=== PATIENT | female | born 1995 | race Caucasian/White ===

== ENCOUNTER 2019-11-21 19:45 | Emergency (ER) | payer BC ==
--- NOTE | 2019-11-21 21:20 | EDM.PDOC ---
ED HPI GENERAL MEDICAL PROBLEM - General Chief Complaint: Lower Extremity Injury/Pain Stated Complaint: LEFT FOOT HURTS Time Seen by Provider: 11/21/19 21:20 - History of Present Illness INITIAL COMMENTS - FREE TEXT/NARRATIVE: 24-year-old female presents the emergency room with left foot pain. This pain is been getting worse over the last several days it does not seem to bother her until she steps down on it and it seems to involve her heel. Sometimes it gets better sometimes it does not get better with ambulation. Patient denies any recent trauma. Patient has not had this problem in the past. Left Feet Pain Score (Numeric/FACES): 5 - Related Data Allergies Allergy/AdvReac Type Severity Reaction Status Date / Time No Known Allergies Allergy Verified 11/21/19 19:51 Home Meds: Home Meds . [No Known Home Meds] 11/21/19 [History] Past Medical History - Past Health History Medical/Surgical History: Denies Medical/Surgical History Social & Family History - Tobacco Use Smoking Status *Q: Never Smoker - Recreational Drug Use Recreational Drug Use: No Review of Systems - Review of Systems Review Of Systems: See Below Constitutional: Reports: No Symptoms Respiratory: Reports: No Symptoms Cardiovascular: Reports: No Symptoms GI/Abdominal: Reports: No Symptoms ED EXAM, GENERAL - Physical Exam Exam: See Below Exam Limited By: No Limitations General Appearance: Alert, No Apparent Distress Respiratory/Chest: No Respiratory Distress, Lungs Clear, Normal Breath Sounds Cardiovascular: Regular Rate, Rhythm, No Edema, No Murmur Extremities: Other (Of her left foot shows no obvious deformity neurovascular status is intact. She has palpation induced tenderness over the plantar fascia insertion on the calcaneus and this goes up the medial side and up the lateral side. No other abnormality noted on foot exam) Course - Vital Signs Last Recorded V/S: Last Vital Signs Temp 36.6 C 11/21/19 19:51 Pulse 70 11/21/19 19:51 Resp 15 11/21/19 19:51 BP 118/59 L 11/21/19 19:51 Pulse Ox 98 11/21/19 19:51 - Orders/Labs/Meds Orders: Active Orders 24 hr Category Date Time Status Foot Comp Min 3V Lt [CR] Stat Exams 11/21/19 21:26 Taken - Re-Assessments/Exams Free Text/Narrative Re-Assessment/Exam: 11/21/19 22:15 Examination of the foot is entirely unremarkable she does not even have bone spurs on her calcaneus however this does not exclude plantar fasciitis. I had a long discussion with the patient she will use Naprosyn or ibuprofen and she will try and get a [id number] arch support and see if this helps if she is not making improvement in a couple of weeks she should follow-up with a management aide. Departure - Departure Time of Disposition: 22:16 Disposition: Home, Self-Care Clinical Impression: Pain of left heel, Plantar fasciitis of left foot - Discharge Information Referrals: PCP,None [Primary Care Provider] - Forms: ED Department Discharge Additional Instructions: Return to the emergency room with any questions problems or worsening symptoms. supervisor hot dip tinning an [id number] comfortable foot bed insert. Take Naprosyn twice daily or ibuprofen 3 or 4 times daily. If this does not improve in a couple weeks follow-up with podiatry Sepsis Event Note - Evaluation Sepsis Screening Result: No Definite Risk - Focused Exam Vital Signs: Vital Signs Temp Pulse Resp BP Pulse Ox 11/21/19 19:51 36.6 C 70 15 118/59 L 98 Date Exam was Performed: 11/21/19 Time Exam was Performed: 22:15 - My Orders Last 24 Hours: My Active Orders 11/21/19 21:26 Foot Comp Min 3V Lt [CR] Stat - Assessment/Plan Last 24 Hours: My Active Orders 11/21/19 21:26 Foot Comp Min 3V Lt [CR] Stat
--- NOTE | 2019-11-22 07:25 | CR ---
Left foot: Four views of the left foot were obtained. Comparison: No prior foot imaging is available. Findings: Joint spaces are preserved. No fracture, dislocation or other bony abnormality is seen. Impression: 1. No abnormality is appreciated on left foot exam. Diagnostic code #1 This report was dictated in [place] Standard Time
== END 2019-11-21 22:22 | disposition home or self-care (01) ==
LOC: JD.ED 19:45
DX: M72.2 Plantar fascial fibromatosis (principal)
CPT/HCPCS: 73630-26-LT; 73630-LT; 99283-25

== ENCOUNTER 2020-01-30 22:54 | Emergency (ER) | payer BC, OTHER ==
[2020-01-30] MEDS ORDERED: Sodium Chloride 0.9% 10 ML Syringe FLUSH PRN (23:22)
[2020-01-30] MEDS ORDERED: Ondansetron 4 MG/2 ML SDV IVPUSH ONE (23:22)
[2020-01-30] MEDS ORDERED: Sodium Chloride 0.9% 1,000 ML IV STA (23:22)
[2020-01-30] MEDS: HYDROmorphone 1 MG/ML Syringe IVPUSH ONE (23:40)
[2020-01-31] MEDS: HYDROmorphone 1 MG/ML Syringe IVPUSH ONE (00:10)
[2020-01-31] MEDS ORDERED: Famotidine 20 MG/2 ML SDV IVPUSH ONE (00:29)
--- NOTE | 2020-01-31 00:35 | EDM.PDOC ---
ED HPI GENERAL MEDICAL PROBLEM - General Chief Complaint: Abdominal Pain Stated Complaint: abdominal and back pain Time Seen by Provider: 01/30/20 23:13 Source of Information: Reports: Patient History Limitations: Reports: No Limitations - History of Present Illness INITIAL COMMENTS - FREE TEXT/NARRATIVE: The patient presents with upper abdominal pain, nausea and vomiting This all started yesterday. She says the pain wraps around to her back. She has no diarrhea or dysuria. She still has her appendix and gallbladder. She has no chest pain, shortness of breath, fever or chills. Onset: Gradual Duration: Day(s): Location: Reports: Abdomen Quality: Reports: Sharp Severity: Moderate Improves with: Reports: None Worsens with: Reports: None Associated Symptoms: Reports: Nausea/Vomiting. Denies: Chest Pain, Cough, Fever /Chills, Headaches, Shortness of Breath Right Upper Abdominal Pain Score (Numeric/FACES): 5 - Related Data Allergies Allergy/AdvReac Type Severity Reaction Status Date / Time No Known Allergies Allergy Verified 01/30/20 23:06 Home Meds: Home Meds Ondansetron [Zofran ODT] 4 mg PO Q6H PRN #20 tab.dis 01/31/20 [Rx] Past Medical History - Past Health History Medical/Surgical History: Denies Medical/Surgical History - Past Surgical History Female Surgical History: Reports: Section Musculoskeletal Surgical History: Reports: Other (See Below) Other Musculoskeletal Surgeries/Procedures:: left arm fx with pins Social & Family History - Tobacco Use Smoking Status *Q: Never Smoker - Caffeine Use Caffeine Use: Reports: Soda - Recreational Drug Use Recreational Drug Use: No ED ROS GENERAL - Review of Systems Review Of Systems: See Below Constitutional: Reports: No Symptoms HEENT: Reports: No Symptoms Respiratory: Reports: No Symptoms Cardiovascular: Reports: No Symptoms Endocrine: Reports: No Symptoms GI/Abdominal: Reports: Abdominal Pain, Nausea, Vomiting. Denies: Diarrhea : Reports: No Symptoms Musculoskeletal: Reports: No Symptoms ED EXAM, GI/ABD - Physical Exam Exam: See Below Exam Limited By: No Limitations General Appearance: Alert, No Apparent Distress Ears: Normal External Exam Nose: Normal Inspection Head: Atraumatic, Normocephalic Neck: Normal Inspection Respiratory/Chest: No Respiratory Distress, Lungs Clear, Normal Breath Sounds Cardiovascular: Regular Rate, Rhythm, No Edema, No Murmur GI/Abdominal Exam: Soft, No Organomegaly, No Mass, Tender (Moderate tenderness to the upper abdomen) Back Exam: Normal Inspection Extremities: Normal Inspection Course - Vital Signs Last Recorded V/S: Last Vital Signs Temp 96.9 F 01/30/20 23:03 Pulse 96 01/30/20 23:03 Resp 16 01/30/20 23:03 BP 124/95 H 01/30/20 23:03 Pulse Ox 96 01/30/20 23:03 - Orders/Labs/Meds Orders: Active Orders 24 hr Category Date Time Status Peripheral IV Care [RC] . DIRECTED Care 01/30/20 23:22 Active Abdomen Pelvis w Cont [CT] Stat Exams 01/31/20 00:07 Taken Sodium Chloride 0.9% [Saline Flush] Med 01/30/20 23:22 Active 10 ml FLUSH ASDIRECTED PRN ED Antiemetic Medication Reflex [OM.PC] Stat Oth 01/30/20 23:22 Ordered Peripheral IV Insertion Adult [OM.PC] Stat Oth 01/30/20 23:22 Ordered Medication Orders Sodium Chloride (Saline Flush) 10 ml FLUSH ASDIRECTED PRN PRN Reason: Keep Vein Open Last Admin: 01/30/20 23:39 Dose: 10 ml Labs: Laboratory Tests 01/30/20 01/30/20 01/30/20 Range/Units 23:34 23:34 23:34 WBC 6.39 (3.98-10.04) K/mm3 RBC 4.56 (3.98-5.22) M/mm3 Hgb 13.7 (11.2-15.7) gm/dl Hct 40.7 (34.1-44.9) % MCV 89.3 (79.4-94.8) fl MCH 30.0 (25.6-32.2) pg MCHC 33.7 (32.2-35.5) g/dl RDW Std Deviation 40.8 (36.4-46.3) fL Plt Count 255 (182-369) K/mm3 MPV 8.9 L (9.4-12.3) fl Neut % (Auto) 64.2 (34.0-71.1) % Lymph % (Auto) 24.3 (19.3-51.7) % Wy[place] % (Auto) 10.2 (4.7-12.5) % Eos % (Auto) 0.9 (0.7-5.8) Baso % (Auto) 0.2 (0.1-1.2) % Neut # (Auto) 4.11 (1.56-6.13) K/mm3 Lymph # (Auto) 1.55 (1.18-3.74) K/mm3 Wythe # (Auto) 0.65 H (0.24-0.36) K/mm3 Eos # (Auto) 0.06 (0.04-0.36) K/mm3 Baso # (Auto) 0.01 (0.01-0.08) K/mm3 Sodium 139 (136-145) mEq/L Potassium 3.7 (3.5-5.1) mEq/L Chloride 104 (98-107) mEq/L Carbon Dioxide 25 (21-32) mEq/L Anion Gap 13.7 (5-15) BUN 13 (7-18) mg/dL Creatinine 0.7 (0.55-1.02) mg/dL Est Cr Clr Drug Dosing 96.32 mL/min Estimated GFR (MDRD) > 60 (>60) mL/min BUN/Creatinine Ratio 18.6 H (14-18) Glucose 99 (74-106) mg/dL Calcium 8.5 (8.5-10.1) mg/dL Total Bilirubin 0.4 (0.2-1.0) mg/dL AST 29 (15-37) U/L ALT 53 (14-59) U/L Alkaline Phosphatase 74 (46-116) U/L Total Protein 7.3 (6.4-8.2) g/dl Albumin 3.9 (3.4-5.0) g/dl Globulin 3.4 gm/dL Albumin/Globulin Ratio 1.2 (1-2) Lipase 68 L (73-393) U/L HCG, Qual Negative (NEGATIVE) Urine Color (Yellow) Urine Appearance (Clear) Urine pH (5.0-8.0) Ur Specific Keeling (1.005-1.030) Urine Protein (Negative) Urine Glucose (UA) (Negative) Urine Ketones (Negative) Urine Occult Blood (Negative) Urine Nitrite (Negative) Urine Bilirubin (Negative) Urine Urobilinogen (0.2-1.0) Ur Leukocyte Esterase (Negative) Urine RBC (0-5) /hpf Urine WBC (0-5) /hpf Ur Squamous Epith Cells (0-5) /hpf Urine Bacteria (FEW) /hpf Urine Mucus (FEW) /hpf 01/31/20 Range/Units 01:10 WBC (3.98-10.04) K/mm3 RBC (3.98-5.22) M/mm3 Hgb (11.2-15.7) gm/dl Hct (34.1-44.9) % MCV (79.4-94.8) fl MCH (25.6-32.2) pg MCHC (32.2-35.5) g/dl RDW Std Deviation (36.4-46.3) fL Plt Count (182-369) K/mm3 MPV (9.4-12.3) fl Neut % (Auto) (34.0-71.1) % Lymph % (Auto) (19.3-51.7) % Wy[place] % (Auto) (4.7-12.5) % Eos % (Auto) (0.7-5.8) Baso % (Auto) (0.1-1.2) % Neut # (Auto) (1.56-6.13) K/mm3 Lymph # (Auto) (1.18-3.74) K/mm3 Wy[place] # (Auto) (0.24-0.36) K/mm3 Eos # (Auto) (0.04-0.36) K/mm3 Baso # (Auto) (0.01-0.08) K/mm3 Sodium (136-145) mEq/L Potassium (3.5-5.1) mEq/L Chloride (98-107) mEq/L Carbon Dioxide (21-32) mEq/L Anion Gap (5-15) BUN (7-18) mg/dL Creatinine (0.55-1.02) mg/dL Est Cr Clr Drug Dosing mL/min Estimated GFR (MDRD) (>60) mL/min BUN/Creatinine Ratio (14-18) Glucose (74-106) mg/dL Calcium (8.5-10.1) mg/dL Total Bilirubin (0.2-1.0) mg/dL AST (15-37) U/L ALT (14-59) U/L Alkaline Phosphatase (46-116) U/L Total Protein (6.4-8.2) g/dl Albumin (3.4-5.0) g/dl Globulin gm/dL Albumin/Globulin Ratio (1-2) Lipase (73-393) U/L HCG, Qual (NEGATIVE) Urine Color Yellow (Yellow) Urine Appearance Clear (Clear) Urine pH 6.0 (5.0-8.0) Ur Specific [place] 1.025 (1.005-1.030) Urine Protein Negative (Negative) Urine Glucose (UA) Negative (Negative) Urine Ketones Negative (Negative) Urine Occult Blood Negative (Negative) Urine Nitrite Negative (Negative) Urine Bilirubin Negative (Negative) Urine Urobilinogen 0.2 (0.2-1.0) Ur Leukocyte Esterase Negative (Negative) Urine RBC 0-5 (0-5) /hpf Urine WBC Not seen (0-5) /hpf Ur Squamous Epith Cells 5-10 H (0-5) /hpf Urine Bacteria Few (FEW) /hpf Urine Mucus Many H (FEW) /hpf Meds: Medications Generic Name Dose Route Start Last Admin Trade Name Terrell PRN Reason Stop Dose Admin Sodium Chloride 10 ml 01/30/20 23:22 01/30/20 23:39 Saline Flush FLUSH 10 ml ASDIRECTED PRN Administration Keep Vein Open Discontinued Medications Generic Name Dose Route Start Last Admin Trade Name Terrell PRN Reason Stop Dose Admin Famotidine 20 mg 01/31/20 00:29 01/31/20 00:49 Pepcid IVPUSH 01/31/20 00:30 20 mg ONETIME ONE Administration Hydromorphone HCl 1 mg 01/30/20 23:23 01/31/20 00:10 Dilaudid IVPUSH 01/30/20 23:24 0.5 mg ONETIME ONE Administration Sodium Chloride 1,000 mls @ 1,000 mls/hr 01/30/20 23:22 01/30/20 23:38 Normal Saline IV 01/31/20 00:21 1,000 mls/hr .BOLUS STA Administration Ondansetron HCl 4 mg 01/30/20 23:22 01/30/20 23:38 Zofran IVPUSH 01/30/20 23:23 4 mg ONETIME ONE Administration - Re-Assessments/Exams Free Text/Narrative Re-Assessment/Exam: 01/31/20 01:40 I ordered an IV NS 1L bolus, zofran 4mg IV, dilaudid 1mg IV, labs, UA and I did an US of her gallbladder and her gallbladder was contracted down. I did not see any stones. I then ordered a CT of her abdomen and pelvis. Her CBC looks good. Her CMP looks good. Her lipase is low at 68. Her HCG is negative. Her UA shows no UTI. I am waiting on the CT results. 01/31/20 02:[address] shows nothing acute. She feels much better. I will discharge her home. Departure - Departure Time of Disposition: 02:40 Disposition: Home, Self-Care 01 Condition: Good Clinical Impression: Gastroenteritis - Discharge Information *PRESCRIPTION DRUG MONITORING PROGRAM REVIEWED*: Not Applicable *COPY OF PRESCRIPTION DRUG MONITORING REPORT IN PATIENT JAMIE: Not Applicable Prescriptions: Ondansetron [Zofran ODT] 4 mg PO Q6H PRN #20 tab.dis PRN Reason: Nausea\vomiting Referrals: PCP,None [Primary Care Provider] - Flory Arteaga PA-C [Physician Pulmonary Specialist] - 1 Week Forms: ED Department Discharge, ED Return to Work/School Form Additional Instructions: Drink plenty of fluids. Take the zofran every 6 hours as needed for nausea and vomiting. Take tylenol or motrin as needed for pain. Take pepcid 20mg daily for a week. Please return if you are worse. Sepsis Event Note - Evaluation Sepsis Screening Result: No Definite Risk - Focused Exam Vital Signs: Vital Signs Temp Pulse Resp BP Pulse Ox 01/30/20 23:03 96.9 F 96 16 124/95 H 96 Date Exam was Performed: 01/31/20 Time Exam was Performed: 02:36 - My Orders Last 24 Hours: My Active Orders 01/30/20 23:22 Peripheral IV Care [RC] . DIRECTED Sodium Chloride 0.9% [Saline Flush] 10 ml FLUSH ASDIRECTED PRN ED Antiemetic Medication Reflex [OM.PC] Stat Peripheral IV Insertion Adult [OM.PC] Stat 01/31/20 00:07 Abdomen Pelvis w Cont [CT] Stat - Assessment/Plan Last 24 Hours: My Active Orders 01/30/20 23:22 Peripheral IV Care [RC] . DIRECTED Sodium Chloride 0.9% [Saline Flush] 10 ml FLUSH ASDIRECTED PRN ED Antiemetic Medication Reflex [OM.PC] Stat Peripheral IV Insertion Adult [OM.PC] Stat 01/31/20 00:07 Abdomen Pelvis w Cont [CT] Stat
--- NOTE | 2020-01-31 07:30 | CT ---
CT abdomen and pelvis Technique: Multiple axial sections were obtained from above the dome of the diaphragm inferiorly through the pubic symphysis. Intravenous contrast and oral contrast has been given. Comparison: No prior abdominal imaging is available. Findings: Visualized lung bases show nothing acute. Left lobe of the liver shows 2 low density lesions. Larger abnormality measures about 5.3 cm in greatest size. Smaller lesion measures about 1.2 cm in greatest size. Larger lesion shows mild peripheral clumping of contrast. Findings most likely represent hemangiomas. No additional abnormality is appreciated within the liver. Spleen appears within normal limits. Adrenal glands show no nodule. Pancreas is within normal limits. Gallbladder contains no calcified gallstones. Kidneys show symmetric contrast enhancement with no hydronephrosis or mass. Aorta shows no aneurysm. No retroperitoneal adenopathy or mesenteric abnormalities are seen. Appendix is seen which is normal in size. No pelvic mass or adenopathy is seen. No free fluid or inflammatory change is appreciated. Scattered mesenteric lymph nodes are seen believed to be within normal limits. Slight increased stool is noted within the colon. Delayed images show contrast within the distal ureters as well as contrast being seen within the bladder. Bone window settings were reviewed which show no acute osseous finding. Impression: 1. Two low density lesions within the liver which most likely represent hemangiomas as described above. 2. Mild increased stool is noted throughout the colon. 3. Nothing acute is otherwise seen on CT study of the abdomen and pelvis. Diagnostic code #2 This report was dictated in MDT I agree with preliminary report from [facility], finalized on, 3:24 AM Central Time
== END 2020-01-31 02:49 | disposition home or self-care (01) ==
LOC: JD.ED 22:54
DX: K52.9 Noninfective gastroenteritis and colitis, unspecified (principal)
CPT/HCPCS: 36415; 74177; 80053; 81001; 83690; 84703; 85025; 96361; 96374; 96375; 99284; J1170; J2405; J3490; J7030; 99283